=== PATIENT | female | born 2000 | race African-American/Black ===

== ENCOUNTER 2022-08-30 00:40 | Emergency (ER) | payer MEDICAID ==
[~2022-08-30] VITALS: Ht 167.6 cm; Wt 130.0 kg
[~2022-08-30 00:40] MED LIST: SERT25TA
[2022-08-30 00:55] VITALS: BP 135/80
[2022-08-30] MEDS ORDERED: LORAZEPAM 0.5MG TABLET PO ONE (01:00)
== END 2022-08-30 05:30 | disposition left against medical advice (07) ==
LOC: ER 00:40
DX: F12.980 Cannabis use, unspecified with anxiety disorder (principal)
CPT/HCPCS: 99283